=== PATIENT | male | born 1960 | race Caucasian/White ===

== ENCOUNTER 2017-08-11 21:14 | Observation (INO) | payer OTHER ==
[~2017-08-11] VITALS: Ht 165.1 cm; Wt 132.9 kg
[~2017-08-11 21:14] MED LIST: ALBU90OI61 INH; ALPR.5; AMOX500 PO; ANTOXYBENA LEFTEAR; ATEN25 PO; ATENOLOL; Amoxicillin875 MG PO; BUSP10 PO; CETI5 PO; CHOLESTEROL MED; CLON.5 PO; DOXY100 PO; EZET10 PO; HYDACE5; HYDACE5 PO; HYDGUAL120 PO; HYDRA25 PO; IBUP800; LIDO5TP TOP; LOPE2C PO; LORA1 PO; Lisinopril2.5 MG PO; METF500 PO; NAPR500EC PO; OMEPRAZOLE; OXYACE5T PO; OXYC5 PO; PAIN MED; PRAZ1 PO; Prilosec20 MG PO; RXDIPATR PO; RXPROM25 PO; SERT100 PO; TERA5 PO; Ultram50 MG PO; [UNRECOGNIZED DRUG - REMARK]
[2017-08-12 00:04] LABS: BASOPHILS ABSOLUTE AUTO 0.03 K/mm3 (0.00-0.23); BASOPHILS PERCENT AUTO 0 % (0-2); EOSINOPHILS ABSOLUTE AUTO 0.54 K/mm3 (0.00-0.68); EOSINOPHILS PERCENT AUTO 4 % (0-6); Hematocrit 41.8 % (37.0-53.0); Hemoglobin 13.9 g/dL (13.5-17.5); IMMATURE GRAN ABSOLUTE AUTO 0.05 K/mm3 (0.00-0.10); IMMATURE GRAN PERCENT AUTO 0 % (0-1); LYMPHOCYTES ABSOLUTE AUTO 1.62 K/mm3 (0.84-5.20); LYMPHOCYTES PERCENT AUTO 13 % (21-46); MONOCYTES ABSOLUTE AUTO 0.63 K/mm3 (0.16-1.47); MONOCYTES PERCENT AUTO 5 % (4-13); Mean Corpuscular HGB 29.8 pg (26.0-34.0); Mean Corpuscular HGB Conc 33.3 g/dL (31.5-36.5); Mean Corpuscular Volume 90 fL (80-100); Mean Platelet Volume 9.6 fL (9.1-12.4); NEUTROPHILS ABSOLUTE AUTO 9.43 K/mm3 (1.96-9.15); NEUTROPHILS PERCENT AUTO 77 % (41-73); Platelet Count 222 K/mm3 (150-400); RDW Coefficient Variation 13.4 % (11.7-14.2); Red Blood Cell Count 4.67 M/mm3 (4.30-5.90)
[2017-08-12 00:05] LABS: Source, Urine Clean Catch
[2017-08-12] MEDS ORDERED: ALBU90OI6 INH (00:05)
[2017-08-12 00:09] LABS: Bilirubin, Urine Neg (Neg); Blood, Urine Neg (Neg); Glucose Qualitative, Urine Neg (Neg); Ketones, Urine Neg (Neg); Leukocyte Esterase, Urine Neg (Neg); Nitrite, Urine Neg (Neg); Protein, Urine Neg (Neg); Specific Gravity, Urine 1.025 (1.003-1.022); Urobilinogen, Urine NORM (Normal)
[2017-08-12 00:12] LABS: Appearance, Urine Clear (Clear); Color, Urine Yellow (P-Yellow)
[2017-08-12 00:16] LABS: Alanine Aminotransfer (ALT/SGP 31 U/L (12-78); Albumin, Blood 3.5 g/dL (3.4-5.0); Albumin/Globulin Ratio 0.9 (0.8-1.8); Alk Phos 181 U/L (50-136); Anion Gap 8 mmol/L (6-16); Aspartate Aminotrans (AST/SGOT 18 U/L (12-37); Bilirubin, Total 0.2 mg/dL (0.1-1.0); Blood Urea Nitrogen 33 mg/dL (8-24); CO2, Blood 24 mmol/L (21-32); Calcium, Blood 8.7 mg/dL (8.5-10.1); Chloride, Blood 107 mmol/L (98-108); Creatinine, Blood 1.22 mg/dL (0.60-1.20); Ethanol (Alcohol), Blood, Med <3 mg/dL; Globulin, Blood 4.1 g/dL (2.2-4.0); Glomerular Filtration Rate >60 (60-); Glucose, Blood 119 mg/dL (70-99); Potassium, Blood 3.9 mmol/L (3.5-5.5); Sodium, Blood 139 mmol/L (136-145); Total Protein, Blood 7.6 g/dL (6.4-8.2)
[2017-08-12 00:19] LABS: U Amphetamine Screen Not Detected; U Barbituate Screen Not Detected; U Benzodiazapine Screen Not Detected; U Methamphetamine Screen Not Detected
[2017-08-12 00:20] LABS: U Buprenorphine Screen Not Detected; U Cannabinoids Screen Not Detected; U Cocaine Screen Not Detected; U Methadone Screen Not Detected; U Opiates Screen Not Detected; U Oxycodone Screen Not Detected; U Phencyclidine Screen Not Detected; U Propoxyphene Screen Not Detected
== END 2017-08-13 15:10 | disposition home or self-care (01) ==
LOC: ER 21:14 → EOR 21:15
PROVIDERS: Emergency Medicine
DX: R45.851 Suicidal ideations (principal); R45.850 Homicidal ideations; R45.4 Irritability and anger; F32.9 Major depressive disorder, single episode, unspecified; E78.00 Pure hypercholesterolemia, unspecified; I10 Essential (primary) hypertension; E11.9 Type 2 diabetes mellitus without complications; F79 Unspecified intellectual disabilities; Z88.6 Allergy status to analgesic agent; Z79.84 Long term (current) use of oral hypoglycemic drugs; Z79.899 Other long term (current) drug therapy
CPT/HCPCS: 80053; 81003; 84443; 85025; 99285; G0378; G0480

== ENCOUNTER → 2020-05-19 | Outpatient (CLI) | payer OTHER ==
[~2020-05-19] MED LIST changes: +ALBU90OI6 INH; +ALLERCLEAR10 MG PO; +ATEN50 PO; +ATORVASTATIN CA40 M1 PO; +GABA100 PO; +HYDHCL25 PO; +Haloperidol1 MG PO; +Hytrin1 MG PO; +TOPI50 PO
[2020-05-19 17:25] LABS: Adenovirus F 40/41 Not Detected (NOT DETECT); Astrovirus Not Detected (NOT DETECT); Campylobacter Sp Not Detected (NOT DETECT); Cryptosporidium Not Detected (NOT DETECT); Cyclospora Cayetanensis Not Detected (NOT DETECT); E. Coli O157 Not Detected (NOT DETECT); Entamoeba Histolytica Not Detected (NOT DETECT); Enteroaggregative E. coli-EAEC Not Detected (NOT DETECT); Enteropathogenic E. coli-EPEC Not Detected (NOT DETECT); Enterotoxigenic E. coli-ETEC Not Detected (NOT DETECT); Giardia Lamblia Not Detected (NOT DETECT); Norovirus GI/GII Not Detected (NOT DETECT); Plesiomonas Shigelloides Not Detected (NOT DETECT); Rotavirus A Not Detected (NOT DETECT); Salmonella Sp Not Detected (NOT DETECT); Sapovirus Not Detected (NOT DETECT); Shiga Toxin-prod E. coli-STEC Not Detected (NOT DETECT); Shigella/Enteroin E. coli-EIEC Not Detected (NOT DETECT); Vibrio Cholerae Not Detected (NOT DETECT); Vibrio Sp Not Detected (NOT DETECT); Yersinia Enterocolitica Not Detected (NOT DETECT)
== END | disposition home or self-care (01) ==
LOC: LAB SHORT 10:00 → LAB 10:00
PROVIDERS: Nurse Practitioner Family
DX: K52.9 Noninfective gastroenteritis and colitis, unspecified (principal); R15.9 Full incontinence of feces
CPT/HCPCS: 0097U; 87177; 87209

== ENCOUNTER → 2021-04-22 | Outpatient (CLI) | payer OTHER | LOC: LAB 13:22 → LAB SHORT 13:22 | DX: D48.5 Neoplasm of uncertain behavior of skin (principal); D22.72 Melanocytic nevi of left lower limb, including hip | CPT/HCPCS: 88305 ==

== ENCOUNTER 2021-04-26 14:21 | Emergency (ER) | payer OTHER ==
[~2021-04-26] VITALS: Ht 172.7 cm; Wt 136.1 kg
== END 2021-04-26 17:00 | disposition home or self-care (01) ==
LOC: ER 14:21
DX: U07.1 COVID-19 (principal); E66.9 Obesity, unspecified; I10 Essential (primary) hypertension; E11.9 Type 2 diabetes mellitus without complications; E78.00 Pure hypercholesterolemia, unspecified; Z88.6 Allergy status to analgesic agent; Z88.8 Allergy status to other drugs, medicaments and biological substances; Z79.84 Long term (current) use of oral hypoglycemic drugs; Z79.899 Other long term (current) drug therapy
CPT/HCPCS: 36415; 99283; M0243; Q0243

== ENCOUNTER 2021-04-27 10:20 | Emergency (ER) | payer OTHER ==
[~2021-04-27] VITALS: Ht 172.7 cm; Wt 136.1 kg
[2021-04-27 11:33] LABS: Bun/Creatinine Ratio 17.4 (12.0-20.0); Calcium, Blood 8.3 mg/dL (8.5-10.1); Creatinine, Blood 1.49 mg/dL (0.60-1.20)
== END 2021-04-27 14:06 | disposition home or self-care (01) ==
LOC: ER 10:20
PROVIDERS: Family Medicine
DX: U07.1 COVID-19 (principal); I10 Essential (primary) hypertension; E11.9 Type 2 diabetes mellitus without complications; E78.00 Pure hypercholesterolemia, unspecified; Z88.6 Allergy status to analgesic agent; Z88.5 Allergy status to narcotic agent; Z88.8 Allergy status to other drugs, medicaments and biological substances; Z79.84 Long term (current) use of oral hypoglycemic drugs; Z79.899 Other long term (current) drug therapy
CPT/HCPCS: 36415; 71045; 80048; 96360; 99284-25; J7120

== ENCOUNTER → 2022-03-22 | Outpatient (CLI) | payer OTHER | END | disposition home or self-care (01) | LOC: LAB SHORT 13:11 → LAB 13:11 | DX: R35.0 Frequency of micturition (principal) | CPT/HCPCS: 87086 ==

== ENCOUNTER 2022-11-16 22:04 | Emergency (ER) | payer OTHER ==
[~2022-11-16] VITALS: Ht 167.6 cm; Wt 119.3 kg
[~2022-11-16 22:04] MED LIST changes: -IBUP800; +IBUP800 PO; +OMEP20ER PO; -Prilosec20 MG PO; +TAMS.4ER PO
[2022-11-16 22:58] LABS: BASOPHILS ABSOLUTE AUTO 0.04 K/mm3 (0.00-0.23); BASOPHILS PERCENT AUTO 1 % (0-2); EOSINOPHILS ABSOLUTE AUTO 0.34 K/mm3 (0.00-0.68); EOSINOPHILS PERCENT AUTO 5 % (0-6); Hematocrit 42.4 % (37.0-53.0); Hemoglobin 14.2 g/dL (13.5-17.5); IMMATURE GRAN ABSOLUTE AUTO 0.02 K/mm3 (0.00-0.10); IMMATURE GRAN PERCENT AUTO 0 % (0-1); LYMPHOCYTES ABSOLUTE AUTO 2.01 K/mm3 (0.84-5.20); LYMPHOCYTES PERCENT AUTO 29 % (21-46); MONOCYTES ABSOLUTE AUTO 0.48 K/mm3 (0.16-1.47); MONOCYTES PERCENT AUTO 7 % (4-13); Mean Corpuscular HGB 31.7 pg (26.0-34.0); Mean Corpuscular HGB Conc 33.5 g/dL (31.5-36.5); Mean Corpuscular Volume 95 fL (80-100); Mean Platelet Volume 9.7 fL (9.1-12.4); NEUTROPHILS ABSOLUTE AUTO 4.11 K/mm3 (1.96-9.15); NEUTROPHILS PERCENT AUTO 59 % (41-73); Platelet Count 162 K/mm3 (150-400); RDW Coefficient Variation 12.8 % (11.7-14.2); RDW Standard Deviation 44.5 fL (35.1-46.3); Red Blood Cell Count 4.48 M/mm3 (4.30-5.90)
[2022-11-16 23:38] LABS: Albumin, Blood 3.5 g/dL (3.4-5.0); Bilirubin, Total 0.3 mg/dL (0.1-1.0); Calcium, Blood 8.5 mg/dL (8.5-10.1); Globulin, Blood 3.6 g/dL (2.2-4.0); Potassium, Blood 4.6 mmol/L (3.5-5.5); Total Protein, Blood 7.1 g/dL (6.4-8.2)
[2022-11-17 03:14] LABS: Source, Urine Clean Catch
[2022-11-17 03:47] LABS: Bilirubin, Urine Neg (Neg); Blood, Urine Neg (Neg); Glucose Qualitative, Urine Neg (Neg); Ketones, Urine Neg (Neg); Leukocyte Esterase, Urine Neg (Neg); Nitrite, Urine Neg (Neg); Protein, Urine 1+ (Neg); Specific Gravity, Urine 1.015 (1.003-1.022); Urobilinogen, Urine NORM (Normal)
[2022-11-17 03:55] LABS: Appearance, Urine Clear (Clear); Color, Urine Yellow (P-Yellow)
[2022-11-17 04:11] LABS: Influenza A, PCR NEGATIVE (NEGATIVE); Influenza B, PCR NEGATIVE (NEGATIVE); Resp Syncytial Virus, PCR NEGATIVE (NEGATIVE); SARS-Cov-2 (COVID-19) PCR, MMC NEGATIVE (NEGATIVE)
[2022-11-17 04:52] LABS: Magnesium, Blood 2.1 mg/dL (1.6-2.4); Thyroid Stimulating Hormone 1.83 uIU/mL (0.360-4.800)
[2022-11-17 06:27] VITALS: BP 106/65
== END 2022-11-17 06:28 | disposition home or self-care (01) ==
LOC: ER 22:04
PROVIDERS: Student in an Organized Health Care Education/Training Program
DX: S00.01XA Abrasion of scalp, initial encounter (principal); R53.1 Weakness; W18.30XA Fall on same level, unspecified, initial encounter; Z20.822 Contact with and (suspected) exposure to COVID-19; Z88.6 Allergy status to analgesic agent; Z88.8 Allergy status to other drugs, medicaments and biological substances; Z79.899 Other long term (current) drug therapy; Z91.02 Food additives allergy status; E78.00 Pure hypercholesterolemia, unspecified; E11.9 Type 2 diabetes mellitus without complications; I10 Essential (primary) hypertension
CPT/HCPCS: 0241U; 70450; 80053; 83735; 84443; 84484; 85025; 93005; 93010; 99285-25

== ENCOUNTER 2023-05-20 12:41 | Emergency (ER) | payer OTHER ==
[~2023-05-20] VITALS: Ht 170.2 cm; Wt 102.1 kg
[2023-05-20 13:03] VITALS: BP 111/63
[2023-05-20 13:53] LABS: Source, Urine Clean Catch
[2023-05-20 14:00] LABS: Appearance, Urine Cloudy (Clear); Bilirubin, Urine Neg (Neg); Blood, Urine 5+ (Neg); Color, Urine Red (P-Yellow); Glucose Qualitative, Urine Neg (Neg); Ketones, Urine Neg (Neg); Leukocyte Esterase, Urine 3+ (Neg); Nitrite, Urine Neg (Neg); Protein, Urine 3+ (Neg); Specific Gravity, Urine 1.015 (1.003-1.022); Urobilinogen, Urine 2+ (Normal)
[2023-05-20 14:10] LABS: Bacteria Many /hpf; Red Blood Cells, Urine 50-100 /hpf (0-2); Squamous Epithelial Cells Rare /hpf (Few)
[2023-05-20 14:11] LABS: Hyaline Casts 0-2 /lpf (0-2); Transitional Epithelial Cells Rare /hpf (0-Rare)
[2023-05-20] MEDS ORDERED: AMOCLA875 PO (14:45)
== END 2023-05-20 15:21 | disposition home or self-care (01) ==
LOC: ER 12:41
PROVIDERS: Physician Assistant
DX: N39.0 Urinary tract infection, site not specified (principal); R31.9 Hematuria, unspecified; E78.00 Pure hypercholesterolemia, unspecified; E11.9 Type 2 diabetes mellitus without complications; I10 Essential (primary) hypertension; F70 Mild intellectual disabilities; Z88.8 Allergy status to other drugs, medicaments and biological substances; Z79.899 Other long term (current) drug therapy
CPT/HCPCS: 81001; 87077; 87086; 87186; 99283; A9270

== ENCOUNTER → 2023-06-01 | Outpatient (CLI) | payer OTHER ==
[~2023-06-01] MED LIST changes: +AMOCLA875 PO
[2023-06-01 15:49] LABS: Source, Urine Clean Catch
[2023-06-01 19:16] LABS: Appearance, Urine Cloudy (Clear); Bilirubin, Urine Neg (Neg); Blood, Urine 4+ (Neg); Color, Urine Amber (P-Yellow); Glucose Qualitative, Urine Neg (Neg); Ketones, Urine Neg (Neg); Leukocyte Esterase, Urine 3+ (Neg); Nitrite, Urine Neg (Neg); Protein, Urine 2+ (Neg); Urobilinogen, Urine NORM (Normal)
[2023-06-01 19:32] LABS: Triple Phosphate Crystals Many /hpf
[2023-06-01 19:33] LABS: Bacteria Many /hpf; Squamous Epithelial Cells Not Seen /hpf (Few)
== END | disposition home or self-care (01) ==
LOC: LAB 15:47 → LAB SHORT 15:47
PROVIDERS: Student in an Organized Health Care Education/Training Program
DX: R30.0 Dysuria (principal)
CPT/HCPCS: 81001; 87077; 87086; 87186

== ENCOUNTER 2024-01-22 21:05 | Emergency (ER) | payer OTHER ==
[~2024-01-22] VITALS: Ht 175.3 cm; Wt 99.8 kg
[2024-01-22 21:34] LABS: BASOPHILS ABSOLUTE AUTO 0.04 K/mm3 (0.00-0.23); BASOPHILS PERCENT AUTO 1 % (0-2); EOSINOPHILS ABSOLUTE AUTO 0.27 K/mm3 (0.00-0.68); EOSINOPHILS PERCENT AUTO 4 % (0-6); Hemoglobin 15.1 g/dL (13.5-17.5); IMMATURE GRAN ABSOLUTE AUTO 0.02 K/mm3 (0.00-0.10); IMMATURE GRAN PERCENT AUTO 0 % (0-1); LYMPHOCYTES ABSOLUTE AUTO 2.13 K/mm3 (0.84-5.20); LYMPHOCYTES PERCENT AUTO 29 % (21-46); MONOCYTES ABSOLUTE AUTO 0.47 K/mm3 (0.16-1.47); MONOCYTES PERCENT AUTO 6 % (4-13); Mean Corpuscular HGB 30.3 pg (26.0-34.0); Mean Corpuscular HGB Conc 32.1 g/dL (31.5-36.5); Mean Corpuscular Volume 94 fL (80-100); Mean Platelet Volume 9.4 fL (9.1-12.4); NEUTROPHILS ABSOLUTE AUTO 4.42 K/mm3 (1.96-9.15); NEUTROPHILS PERCENT AUTO 60 % (41-73); Platelet Count 210 K/mm3 (150-400); RDW Coefficient Variation 13.6 % (11.7-14.2); RDW Standard Deviation 47.5 fL (35.1-46.3); Red Blood Cell Count 4.98 M/mm3 (4.30-5.90); White Blood Cell Count 7.35 K/mm3 (4.00-11.30)
[2024-01-22 21:52] LABS: Albumin, Blood 3.2 g/dL (3.4-5.0); Albumin/Globulin Ratio 0.8 (0.8-1.8); Bilirubin, Total 0.3 mg/dL (0.1-1.0); Bun/Creatinine Ratio 35.7 (12.0-20.0); Calcium, Blood 8.8 mg/dL (8.5-10.1); Creatinine, Blood 0.56 mg/dL (0.60-1.20); Globulin, Blood 4.1 g/dL (2.2-4.0); Potassium, Blood 4.1 mmol/L (3.5-5.5); Total Protein, Blood 7.3 g/dL (6.4-8.2)
[2024-01-22 23:39] VITALS: BP 106/85
== END 2024-01-22 23:43 | disposition home or self-care (01) ==
LOC: ER 21:05
PROVIDERS: Student in an Organized Health Care Education/Training Program
DX: R03.1 Nonspecific low blood-pressure reading (principal); E11.9 Type 2 diabetes mellitus without complications; I10 Essential (primary) hypertension; Z96.651 Presence of right artificial knee joint; Z88.8 Allergy status to other drugs, medicaments and biological substances; Z91.09 Other allergy status, other than to drugs and biological substances; Z79.899 Other long term (current) drug therapy
CPT/HCPCS: 80053; 85025; 99284

== ENCOUNTER 2024-02-27 09:03 | Inpatient (IN) | payer OTHER ==
[~2024-02-27] VITALS: Ht 180.3 cm; Wt 108.9 kg
[~2024-02-27 09:03] MED LIST changes: +IBUP600 PO; -IBUP800 PO
[2024-02-27 10:24] LABS: BASOPHILS ABSOLUTE AUTO 0.04 K/mm3 (0.00-0.23); BASOPHILS PERCENT AUTO 0 % (0-2); EOSINOPHILS ABSOLUTE AUTO 0.11 K/mm3 (0.00-0.68); EOSINOPHILS PERCENT AUTO 1 % (0-6); Hematocrit 52.1 % (37.0-53.0); Hemoglobin 17.4 g/dL (13.5-17.5); IMMATURE GRAN ABSOLUTE AUTO 0.02 K/mm3 (0.00-0.10); IMMATURE GRAN PERCENT AUTO 0 % (0-1); LYMPHOCYTES ABSOLUTE AUTO 1.51 K/mm3 (0.84-5.20); LYMPHOCYTES PERCENT AUTO 16 % (21-46); MONOCYTES ABSOLUTE AUTO 0.59 K/mm3 (0.16-1.47); MONOCYTES PERCENT AUTO 6 % (4-13); Mean Corpuscular HGB 30.7 pg (26.0-34.0); Mean Corpuscular HGB Conc 33.4 g/dL (31.5-36.5); Mean Corpuscular Volume 92 fL (80-100); Mean Platelet Volume 9.2 fL (9.1-12.4); NEUTROPHILS ABSOLUTE AUTO 7.25 K/mm3 (1.96-9.15); NEUTROPHILS PERCENT AUTO 76 % (41-73); Platelet Count 204 K/mm3 (150-400); RDW Coefficient Variation 13.5 % (11.7-14.2); RDW Standard Deviation 46.1 fL (35.1-46.3); Red Blood Cell Count 5.67 M/mm3 (4.30-5.90); White Blood Cell Count 9.52 K/mm3 (4.00-11.30)
[2024-02-27 10:41] LABS: Albumin, Blood 3.6 g/dL (3.4-5.0); Albumin/Globulin Ratio 0.9 (0.8-1.8); Bilirubin, Total 0.6 mg/dL (0.1-1.0); Bun/Creatinine Ratio 32.3 (12.0-20.0); Calcium, Blood 9.3 mg/dL (8.5-10.1); Creatinine, Blood 0.53 mg/dL (0.60-1.20); Globulin, Blood 4.2 g/dL (2.2-4.0); Potassium, Blood 4.4 mmol/L (3.5-5.5); Total Protein, Blood 7.8 g/dL (6.4-8.2)
[2024-02-27 12:03] LABS: Influenza A, PCR NEGATIVE (NEGATIVE); Influenza B, PCR NEGATIVE (NEGATIVE); Resp Syncytial Virus, PCR NEGATIVE (NEGATIVE); SARS-Cov-2 (COVID-19) PCR, MMC NEGATIVE (NEGATIVE)
[2024-02-27] MEDS ORDERED: CefTRIAXone Sodium 2,000 MG in NS 100 ML IV ONE (12:30)
[2024-02-27] MEDS ORDERED: Azithromycin 500 MG in NS 250 ML IV ONE (12:30)
--- NOTE | 2024-02-27 13:53 | NUR ---
CALL TO ER AND SPOKE WITH YONNY CHURCH TO RECEIVE REPORT.
[2024-02-27 15:10] VITALS: BP 197/166
[2024-02-27] MEDS ORDERED: Albuterol 2.5 MG/3 ML VIAL INH PRN (15:35)
[2024-02-27] MEDS ORDERED: COMBIVENT RESPIM4 G1 INH (16:05)
[2024-02-27] MEDS ORDERED: TROSPIUM CHLORI20 M1 PO (16:18)
[2024-02-27] MEDS ORDERED: IPRAT-ALBUT 0.5-3 ML INH (16:21)
[2024-02-27] MEDS ORDERED: ABILIFY MYCITE10 M2 PO (16:22)
[2024-02-27] MEDS ORDERED: CLOT10 MT (16:23)
[2024-02-27] MEDS ORDERED: B-121000 MC7 PO (16:23)
[2024-02-27] MEDS ORDERED: Cyclobenzaprine5 MG PO (16:24)
[2024-02-27] MEDS ORDERED: Insulin Regular 100 UNIT/ML 10ML Vial SC SCH (16:30)
[2024-02-27] MEDS ORDERED: COMPOUNDED CREAM TOP (16:30)
[2024-02-27] MEDS ORDERED: [UNRECOGNIZED DRUG - OTHER] (16:44)
[2024-02-27 16:56] VITALS: BP 96/76
[2024-02-27 17:00] VITALS: BP 110/72; BP 97/72
--- NOTE | 2024-02-27 18:36 | NUR ---
DAY SHIFT SUMMARY: A&Ox4. PLEASANT AND COOPERATIVE WITH CARE. CALLS APPROPRIATELY AND IS ABLE TO ADVOCATE NEEDS EFFECTIVELY. SPEAKS SLOWLY WITH SLURRED SPEECH; RESPONDS WELL WHEN STAFF TAKE TIME TO LISTEN TO CONCERNS. BP REFLECTED ANXIETY AT INITIAL ADMIT AND CORRECTED AFTER AN HOUR. Hx PTSD, ANXIETY, DEPRESSION AND SCHIZOPHRENIA. LIVES AT [facility]; CAREGIVER AT BEDSIDE UPON ADMIT AND ANOTHER CAREGIVER TO BEDSIDE AT 1700; WILL BE BACK AT 2030. MEDICATIONS RECONCILED WITH FACILITY CURRENT MED LIST. FULL MAX ASSIST WTIH LIFT. DIFFICULTY VOIDING: BLADDER SCAN YIELDED 330mL AFTER ATTEMPTING TO VOID TWICE. Hx BPH. CONTRIBUTORY TO ADLs BUT DOES HAVE BILATERAL WEAKNESS TO LEs AND SOME TO UEs. SACRAL WOUND BEING FOLLOWED BY HOME HEALTH; MEPILEX TO BE APPLIED. LBM EARLIER TODAY PRIOR TO ADMIT. MEDS WHOLE WITH FLUIDS. SUCTION @ BEDSIDE AND IS ABLE TO SELF-SUCTION DUE TO EXCESS SECRETIONS. SPUTUM CULTURE COMPLETED BY RT IN ED. BED IN LOWEST POSITION. CALL LIGHT IN REACH. ALL NEEDS MET. REPORT TO ONCOMING RN.
[2024-02-27 20:28] VITALS: BP 102/71
[2024-02-27] MEDS ORDERED: Lactobacil 2-S.Thermo-Bifido 1 1 Cap PO SCH (21:00)
[2024-02-28 04:10] VITALS: BP 106/70
[2024-02-28 05:17] LABS: BASOPHILS ABSOLUTE AUTO 0.03 K/mm3 (0.00-0.23); BASOPHILS PERCENT AUTO 0 % (0-2); EOSINOPHILS ABSOLUTE AUTO 0.16 K/mm3 (0.00-0.68); EOSINOPHILS PERCENT AUTO 2 % (0-6); Hematocrit 44.5 % (37.0-53.0); IMMATURE GRAN ABSOLUTE AUTO 0.01 K/mm3 (0.00-0.10); IMMATURE GRAN PERCENT AUTO 0 % (0-1); LYMPHOCYTES ABSOLUTE AUTO 2.05 K/mm3 (0.84-5.20); LYMPHOCYTES PERCENT AUTO 29 % (21-46); MONOCYTES ABSOLUTE AUTO 0.56 K/mm3 (0.16-1.47); MONOCYTES PERCENT AUTO 8 % (4-13); Mean Corpuscular HGB 31.3 pg (26.0-34.0); Mean Corpuscular HGB Conc 33.7 g/dL (31.5-36.5); Mean Corpuscular Volume 93 fL (80-100); Mean Platelet Volume 9.5 fL (9.1-12.4); NEUTROPHILS ABSOLUTE AUTO 4.18 K/mm3 (1.96-9.15); NEUTROPHILS PERCENT AUTO 60 % (41-73); Platelet Count 179 K/mm3 (150-400); RDW Coefficient Variation 13.6 % (11.7-14.2); RDW Standard Deviation 46.9 fL (35.1-46.3); Red Blood Cell Count 4.79 M/mm3 (4.30-5.90); White Blood Cell Count 6.99 K/mm3 (4.00-11.30)
--- NOTE | 2024-02-28 05:18 | NUR ---
SHIFT SUMMARY NOC PT A/O X 3-4. SLURRED SPEECH AND SLOW TO RESPOND, BUT PLEASANT AND COOPERATIVE WITH CARE.VSS. HS CBG 97 CNI. PT HAS SLOUGHING WOUND ON COCCYX, MEPILEX IN PLACE C/D/I, AND PICS IN CHART. PT ON 2L/NC WHILE AWAKE, BUT REQUIRES 4.5L WHEN SLEEPING BECAUSE PT DESATURATES INTO LOW 80'S. PT HAD INCONTINENT BM RIGHT AFTER CHANGE OF SHIFT. PT HAS SUCTION BEDSIDE TO HELP REMOVE SECRETIONS FROM PNA, RT ORDERED FLUTTER VALVE WHICH PT REQUIRES ASSITANCE TO USE. PT CURRENTLY RESTING WITH BED IN LOWEST POSITION, AND CALL LIGHT WITHIN REACH.
[2024-02-28 06:09] LABS: Albumin, Blood 2.9 g/dL (3.4-5.0); Albumin/Globulin Ratio 0.9 (0.8-1.8); Bilirubin, Total 0.4 mg/dL (0.1-1.0); Bun/Creatinine Ratio 38.5 (12.0-20.0); Calcium, Blood 8.8 mg/dL (8.5-10.1); Creatinine, Blood 0.52 mg/dL (0.60-1.20); Globulin, Blood 3.4 g/dL (2.2-4.0); Potassium, Blood 3.8 mmol/L (3.5-5.5); Total Protein, Blood 6.3 g/dL (6.4-8.2)
[2024-02-28 07:19] VITALS: BP 94/62
[2024-02-28] MEDS ORDERED: Cyclobenzaprine HCl 10 MG Tab PO PRN (08:05)
[2024-02-28] MEDS ORDERED: Nystatin 100,000 Unit/GM CREAM 15 GM TOP PRN (08:40)
[2024-02-28] MEDS ORDERED: Clotrimazole 10 MG Troche MT SCH (09:00)
[2024-02-28] MEDS ORDERED: Enoxaparin 40 MG/0.4 ML SYR SC SCH (09:00)
[2024-02-28] MEDS ORDERED: Cyanocobalamin 500 MCG Tab PO SCH (09:00)
[2024-02-28] MEDS ORDERED: Miconazole Nitrate 28 GM CREAM..G. TOP SCH (09:00)
[2024-02-28] MEDS ORDERED: Tamsulosin HCl 0.4 MG Cap PO SCH (09:00)
[2024-02-28] MEDS ORDERED: Sertraline HCl 100 MG Tab PO SCH (09:00)
[2024-02-28] MEDS ORDERED: Loratadine 10 MG Tab PO SCH (09:00)
[2024-02-28] MEDS ORDERED: Menthol/Methyl Salicylate Crm 85 GM TUBE TOP PRN (09:40)
[2024-02-28] MEDS ORDERED: Misc. Topical TOP PRN (09:55)
[2024-02-28] MEDS ORDERED: CefTRIAXone Sodium 1,000 MG in NS 100 ML IV SCH (13:00)
[2024-02-28] MEDS ORDERED: Azithromycin 500 MG in NS 250 ML IV SCH (14:00)
[2024-02-28] MEDS ORDERED: NS 250 ML IV PRN (14:40)
[2024-02-28 16:12] VITALS: BP 101/65
--- NOTE | 2024-02-28 17:44 | NUR ---
PT IS ALERT AND ORIENTEDX 2-3 ABLE TO MAKE NEEDS KNOWN. SLOW TO RESPOND. CALLS APPROPRIATELY. IV ANTIBIOTICS CONTINUED. CARE GIVERS HAVE BEEN IN TO VISIT THROUGHOUT THE DAY. CARE GIVERS BROUGHT IN WOUND CARE DRESSING FOR COCCYX. CHANGED THIS SHIFT. PER CARE GIVERS. DRESSING TO BE CHANGED Q 3-4 DAYS. PT 2-3 PERSON ROLL. CALL LIGHT IS IN REACH AND BED IS IN THE LOWEST POSITION.
[2024-02-28] MEDS ORDERED: Midodrine 5 MG Tab PO SCH (18:00)
[2024-02-28 19:27] VITALS: BP 105/75
[2024-02-28] MEDS ORDERED: Topiramate 25 MG Tab PO SCH (21:00)
[2024-02-28] MEDS ORDERED: Trospium Chloride 20 MG Tab PO SCH (21:00)
[2024-02-28] MEDS ORDERED: ARIPiprazole 10 MG Tab PO SCH (21:00)
[2024-02-28] MEDS ORDERED: Atorvastatin 40 MG Tab PO SCH (21:00)
[2024-02-28] MEDS ORDERED: Gabapentin 300 MG Cap PO SCH (21:00)
[2024-02-28] MEDS ORDERED: HyDROXyzine HCl 25 MG Tab PO SCH (21:00)
[2024-02-29 04:31] VITALS: BP 98/58
--- NOTE | 2024-02-29 04:32 | NUR ---
SHIFT SUMMARY PT A&OX3 AND PLEASANT. NO C/O PAIN. PT ON 3L OF OXYGEN AT START OF SHIFT. PT DOES DESAT WHEN TURNING AND O2 WAS INCREASED TO 4L DURING SLEEP AND ATTENDS CHANGE. MAINTAING O2 SATS ABOVE 95%. PT COUGHING UP THICK FLEM AND SUCTION USED PRN. NO INSULIN COVERAGE NEEDED. VSS BUT BP'S REMAIN SOFT. PT ABLE TO HAVE SOFT, SMALL BM. CAREGIVES AT BEDSIDE FOR A SHORT VISIT. REPOSITIONED PRN. BED IN LOWEST POSITION AND CALL LIGHT IN REACH.
[2024-02-29 05:00] LABS: BASOPHILS ABSOLUTE AUTO 0.05 K/mm3 (0.00-0.23); BASOPHILS PERCENT AUTO 1 % (0-2); EOSINOPHILS ABSOLUTE AUTO 0.17 K/mm3 (0.00-0.68); EOSINOPHILS PERCENT AUTO 2 % (0-6); Hematocrit 45.4 % (37.0-53.0); Hemoglobin 14.8 g/dL (13.5-17.5); IMMATURE GRAN ABSOLUTE AUTO 0.02 K/mm3 (0.00-0.10); IMMATURE GRAN PERCENT AUTO 0 % (0-1); LYMPHOCYTES ABSOLUTE AUTO 2.48 K/mm3 (0.84-5.20); LYMPHOCYTES PERCENT AUTO 33 % (21-46); MONOCYTES ABSOLUTE AUTO 0.61 K/mm3 (0.16-1.47); MONOCYTES PERCENT AUTO 8 % (4-13); Mean Corpuscular HGB 30.8 pg (26.0-34.0); Mean Corpuscular HGB Conc 32.6 g/dL (31.5-36.5); Mean Corpuscular Volume 95 fL (80-100); Mean Platelet Volume 9.3 fL (9.1-12.4); NEUTROPHILS ABSOLUTE AUTO 4.24 K/mm3 (1.96-9.15); NEUTROPHILS PERCENT AUTO 56 % (41-73); Platelet Count 179 K/mm3 (150-400); RDW Coefficient Variation 13.4 % (11.7-14.2); RDW Standard Deviation 47.3 fL (35.1-46.3); White Blood Cell Count 7.57 K/mm3 (4.00-11.30)
[2024-02-29 05:46] LABS: Bun/Creatinine Ratio 25.4 (12.0-20.0); Calcium, Blood 8.5 mg/dL (8.5-10.1); Creatinine, Blood 0.55 mg/dL (0.60-1.20); Potassium, Blood 3.9 mmol/L (3.5-5.5)
[2024-02-29] MEDS ORDERED: Omeprazole 20 MG CapCR PO SCH (06:00)
[2024-02-29 07:53] VITALS: BP 93/49
--- NOTE | 2024-02-29 16:26 | NUR ---
SUMMARY NO ACUTE CHANGES THIS SHIFT. PT REPORTS FEELING BETTER OVERALL. LUNGS SOUND MOIST BUT WITH COUGH CLEAR. LIFT PT. 2-3 PERSON TURN. PT IS ALERT AND ORIENTED X 2-3, ABLE TO MAKE NEEDS KNOWN. CARE GIVERS ARE AT BEDSIDE NOW. URINAL IN THE BED WITH ASSISTANCE. NO BM THIS SHIFT.
[2024-02-29 17:53] VITALS: BP 120/88
[2024-03-01 03:10] VITALS: BP 113/89
--- NOTE | 2024-03-01 05:21 | NUR ---
SHIFT SUMMARY PT A&OX3 AND PLEASANT. DEVELOPMENTALLY DELAYED. PT ON RA AT START OF SHIFT AND SATING AROUND 93% ON CONTINIOUS BOIX. PT DID DESAT DURING A BREIF CHANGE AND WAS PLACED ON 1L OF OXYGEN DURING PERSONAL CARE. PT ABLE TO MAINTIAN O2 SATS AROUND 93% DURING THE NIGHT WITHOUT OXYGEN. CAREGIVERS AT BEDSIDE DURING THE EVENING AND UPDATED ON PLAN. VSS. NO C/O PAIN. BED IN LOWEST POSITION AND CALL LIGHT IN REACH.
[2024-03-01 07:26] VITALS: BP 121/86
[2024-03-01] MEDS ORDERED: MIDO5 PO (10:21)
[2024-03-01] MEDS ORDERED: Inzo Antifun141.7 GM TOP (10:21)
[2024-03-01] MEDS ORDERED: VISBIOME 112.51 EACH PO (10:23)
[2024-03-01] MEDS ORDERED: AMOCLA875 PO (10:24)
[2024-03-01 12:51] VITALS: BP 143/110
[2024-03-01 16:00] VITALS: BP 113/89
--- NOTE | 2024-03-01 17:38 | NUR ---
discharged to [facility]. car providers did not show up as scheduled. sent with note to call me for report. iv pulled by aide. no tele.pt wheeled to door by transport at 1725
[2024-03-11] MEDS ORDERED: ATEN50 PO (18:18)
[2024-03-11] MEDS ORDERED: CLON.5 PO (18:19)
[2024-03-11] MEDS ORDERED: Flonase 0.05% N16 GM (18:20)
[2024-03-11] MEDS ORDERED: [UNRECOGNIZED DRUG - OTHER] PO (18:21)
[2024-03-11] MEDS ORDERED: Lisinopril2.5 MG PO (18:23)
[2024-03-11] MEDS ORDERED: MIDO5 PO (18:24)
[2024-03-11] MEDS ORDERED: Sanctura20 MG PO (18:26)
== END 2024-03-01 17:29 | disposition hospice, inpatient (51) | DRG 177 ==
LOC: ER 09:03 → MEDS 09:04 → ENPENDDIS 03-01 09:17 → MEDS 03-01 17:29
PROVIDERS: Student in an Organized Health Care Education/Training Program; ADMIT Family Medicine
DX: J69.0 Pneumonitis due to inhalation of food and vomit (principal); J96.01 Acute respiratory failure with hypoxia; F70 Mild intellectual disabilities; E11.9 Type 2 diabetes mellitus without complications; I10 Essential (primary) hypertension; Z96.651 Presence of right artificial knee joint; Z88.8 Allergy status to other drugs, medicaments and biological substances; Z91.018 Allergy to other foods; Z91.048 Other nonmedicinal substance allergy status; Z99.81 Dependence on supplemental oxygen; E78.00 Pure hypercholesterolemia, unspecified; Z79.899 Other long term (current) drug therapy; Z79.2 Long term (current) use of antibiotics
CPT/HCPCS: 0241U; 36415; 71046; 74230; 80048; 80053; 82947; 85025; 87070; 87205; 92526; 92610; 92611; 93005; 93010; 94664; 94760; 94761; 94762; 96365; 96375; 99285-25; A9270; G0378; J0456; J0696; J1650; J7050

== ENCOUNTER → 2024-03-09 | Emergency (ER) | payer OTHER ==
[~2024-03-09] VITALS: Ht 172.7 cm; Wt 113.4 kg
[~2024-03-09] MED LIST changes: +ABILIFY MYCITE10 M2 PO; +ARIPiprazole 10 MG Tab PO ONE; +Atenolol 50 MG Tab PO SCH; +Atorvastatin 10 MG Tab PO ONE; +B-121000 MC7 PO; +CLOT10 MT; +COMBIVENT RESPIM4 G1 INH; +COMPOUNDED CREAM TOP; +ClonazePAM 0.5 MG Tab PO SCH; +Cyclobenzaprine5 MG PO; +Gabapentin 300 MG Cap PO ONE; +HyDROXyzine HCl 25 MG Tab PO ONE; +IPRAT-ALBUT 0.5-3 ML INH; +Inzo Antifun141.7 GM TOP; +Lisinopril 5 MG Tab PO SCH; +MIDO5 PO; +Sertraline HCl 100 MG Tab PO SCH; +TROSPIUM CHLORI20 M1 PO; +Topiramate 100 MG Tab PO ONE; +VISBIOME 112.51 EACH PO; +[UNRECOGNIZED DRUG - OTHER]
[2024-03-09 21:36] LABS: BASOPHILS ABSOLUTE AUTO 0.04 K/mm3 (0.00-0.23); BASOPHILS PERCENT AUTO 1 % (0-2); EOSINOPHILS PERCENT AUTO 1 % (0-6); Hematocrit 45.8 % (37.0-53.0); Hemoglobin 15.1 g/dL (13.5-17.5); IMMATURE GRAN ABSOLUTE AUTO 0.02 K/mm3 (0.00-0.10); IMMATURE GRAN PERCENT AUTO 0 % (0-1); LYMPHOCYTES ABSOLUTE AUTO 1.99 K/mm3 (0.84-5.20); LYMPHOCYTES PERCENT AUTO 26 % (21-46); MONOCYTES ABSOLUTE AUTO 0.49 K/mm3 (0.16-1.47); MONOCYTES PERCENT AUTO 7 % (4-13); Mean Corpuscular HGB 30.9 pg (26.0-34.0); Mean Corpuscular Volume 94 fL (80-100); Mean Platelet Volume 9.1 fL (9.1-12.4); NEUTROPHILS ABSOLUTE AUTO 4.93 K/mm3 (1.96-9.15); NEUTROPHILS PERCENT AUTO 65 % (41-73); Platelet Count 226 K/mm3 (150-400); RDW Coefficient Variation 13.3 % (11.7-14.2); RDW Standard Deviation 46.1 fL (35.1-46.3); Red Blood Cell Count 4.89 M/mm3 (4.30-5.90); White Blood Cell Count 7.57 K/mm3 (4.00-11.30)
[2024-03-09 21:49] LABS: Albumin, Blood 3.1 g/dL (3.4-5.0); Albumin/Globulin Ratio 0.9 (0.8-1.8); Bilirubin, Total 0.4 mg/dL (0.1-1.0); Bun/Creatinine Ratio 26.1 (12.0-20.0); Calcium, Blood 8.5 mg/dL (8.5-10.1); Creatinine, Blood 0.46 mg/dL (0.60-1.20); Globulin, Blood 3.5 g/dL (2.2-4.0); Total Protein, Blood 6.6 g/dL (6.4-8.2)
[2024-03-09 22:47] LABS: Base Excess Venous -0.1 mmol/L; Bicarbonate Venous 24.2 mmol/L (24.0-30.0); PCO2 Venous 41.4 mmHg (38-42); pH Blood Venous 7.39 (7.34-7.37)
[2024-03-09 23:18] LABS: Influenza A, PCR NEGATIVE (NEGATIVE); Influenza B, PCR NEGATIVE (NEGATIVE); Resp Syncytial Virus, PCR NEGATIVE (NEGATIVE); SARS-Cov-2 (COVID-19) PCR, MMC NEGATIVE (NEGATIVE)
[2024-03-10] VITALS: BP 102/74
== END ==
LOC: ER 20:53
PROVIDERS: Emergency Medicine
DX: J69.0 Pneumonitis due to inhalation of food and vomit (principal); R09.02 Hypoxemia; Z88.8 Allergy status to other drugs, medicaments and biological substances; Z88.6 Allergy status to analgesic agent; Z88.1 Allergy status to other antibiotic agents; Z79.899 Other long term (current) drug therapy; E11.9 Type 2 diabetes mellitus without complications; E78.00 Pure hypercholesterolemia, unspecified; I10 Essential (primary) hypertension
CPT/HCPCS: 0241U; 71045; 80053; 82803; 83880; 84484; 85025; A9270